=== PATIENT | male | born 1960 | race Caucasian/White ===

== ENCOUNTER 2016-12-08 00:21 | Inpatient (IN) | payer SELFPAY ==
[2016-12-08] VITALS (15 sets, daily range): BP systolic 98–165; BP diastolic 40–79; PULSE 65–95; RESP 15–21; TEMP 97.6–98.5; O2SAT 93–100
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
[2016-12-08] MEDS ORDERED: MIDAZOLAM HCL 5 MG/ML VIAL (1 ML) ONE (00:43)
[2016-12-08 00:46] LABS: AUTOMATED NEUTROPHIL # 3.8 TH/MM3 (1.8-7.7); BASOPHIL % 0.4 % (0.0-2.0); EOSINOPHIL # 0.1 TH/MM3 (0-0.4); EOSINOPHIL % 0.8 % (0.0-4.0); HEMATOCRIT 42.1 % (39.0-51.0); LYMPH % 54.7 % (9.0-44.0); LYMPHOCYTE # 5.8 TH/MM3 (1.0-4.8); MEAN CELL VOLUME 95.7 FL (80.0-100.0); MEAN CORPUSCULAR HEMOGLOBIN 33.2 PG (27.0-34.0); MEAN CORPUSCULAR HGB CONC 34.6 % (32.0-36.0); MONO % 8.2 % (0.0-8.0); NEUT % 35.9 % (16.0-70.0); PLATELET COUNT 115 TH/MM3 (150-450); RED CELL DISTRIBUTION WIDTH 12.7 % (11.6-17.2); WHITE BLOOD COUNT 10.6 TH/MM3 (4.0-11.0)
[2016-12-08 00:47] LABS: HEMO FLAGS AUTO DIFF
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
[2016-12-08] MEDS ORDERED: MISCELLANEOUS NURSING INFORMATION XX SCH (01:00)
[2016-12-08] MEDS ORDERED: ONDANSETRON HCL 4 MG/2 ML VIAL IV PRN (01:00)
[2016-12-08] MEDS ORDERED: FLUMAZENIL 0.5 MG/5 ML VIAL IV PUSH PRN (01:00)
[2016-12-08] MEDS ORDERED: CHLORHEXIDINE GLUCONATE 2 % 1 PACK (2 CLOTHS) TOP PRN (01:00)
[2016-12-08] MEDS ORDERED: LORazepam 2 MG TAB PO PRN (01:00)
[2016-12-08] MEDS ORDERED: LORazepam 1 MG TAB PO PRN (01:00)
[2016-12-08] MEDS ORDERED: HALOPERIDOL LACTATE 5 MG/ML AMP IM PRN (01:00)
[2016-12-08] MEDS ORDERED: LORazepam 2 MG/ML VIAL IV PUSH PRN ×4 (01:00)
[2016-12-08] MEDS ORDERED: MORPHINE SULFATE 4 MG/ML INJ IV PRN (01:00)
[2016-12-08] MEDS ORDERED: SODIUM CHLORIDE 0.9% FLUSH 10 ML FLUSH IV FLUSH PRN (01:00)
[2016-12-08] MEDS ORDERED: MAGNESIUM HYDROXIDE SUSP 30 ML CUP PO PRN (01:00)
[2016-12-08] MEDS ORDERED: ACETAMINOPHEN 325 MG TAB PO PRN (01:00)
[2016-12-08] MEDS ORDERED: ENALAPRILAT 1.25 MG/ML VIAL IV PRN (01:00)
[2016-12-08] MEDS: BACITRACIN TOP OINT 15 GM TUBE TOP SCH ×3 (01:00→19:31)
[2016-12-08 01:01] LABS: I-STAT POTASSIUM 3.6 MMOL/L (3.5-4.9); I-STAT SODIUM 133 MMOL/L (138-146)
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
[2016-12-08 01:10] LABS: APTT (PATIENT) 24.3 SEC (24.3-30.1); PROTHROMBIN TIME - PATIENT 11.2 SEC (9.8-11.6)
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
[2016-12-08 01:20] LABS: BANDS 1 % (0-6); NEUTROPHIL # MANUAL DIFF 3.7 TH/MM3 (1.8-7.7); POLYS (SEG NEUTROPHILS) 34 % (16-70); SCAN/DIFF FINAL DIFF MANUAL; WBC DIFF SAMPLE 100
[2016-12-08 01:21] LABS: PLATELET ESTIMATE SMEAR LOW (NORMAL); PLATELET MORPHOLOGY NORMAL (NORMAL)
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
[2016-12-08] MEDS: PROPOFOL 1000 MG/100 ML INJ 100 ML IV SCH ×2 (01:25→08:14)
[2016-12-08] MEDS: SODIUM CHLOR 0.9% 1000 ML INJ 1,000 ML IV SCH ×2 (01:26→05:04)
[2016-12-08 01:30] LABS: ANION GAP 13 MEQ/L (5-15); BICARBONATE 21.2 MEQ/L (21.0-32.0); BLOOD UREA NITROGEN 12 MG/DL (7-18); CHLORIDE 99 MEQ/L (98-107); GLOMERULAR FILTRATION RATE 70 ML/MIN (>89); POTASSIUM 3.5 MEQ/L (3.5-5.1); SODIUM (NA) 133 MEQ/L (136-145)
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
[2016-12-08 02:32] LABS: AMPHETAMINE, URINE NEG (NEG); BARBITURATES, URINE NEG (NEG); COCAINE, URINE NEG (NEG)
[2016-12-08 02:36] LABS: BLOOD GAS BASE EXCESS -5.6 mmol/L (-2-2); BLOOD GAS CARBOXYHEMOGLOBIN 4.4 % (0-4); BLOOD GAS HCO3 19 mmol/L (22-26); BLOOD GAS O2 HGB SATURATION 83 % (90-100); BLOOD GAS PCO2 38 mmHg (38-42); BLOOD GAS PO2 60 mmHg (61-120); BLOOD GAS TOTAL HGB 13.7 G/DL (12.0-16.0); TEMP CORR TO 98.6
[2016-12-08] MEDS ORDERED: IOHEXOL 350 MG/ML 10 ML VIAL (for RAD DIAG) IV ONE (02:38)
[2016-12-08] MEDS: PIPERACIL-TAZO 4.5 GM PREMIX 100 ML IV SCH ×4 (02:40→19:31)
[2016-12-08 02:41] LABS: CRITICAL VALUE YES; OXYGEN DEVICE VENT
[2016-12-08 02:42] LABS: DRAW SITE RT RADIAL; FIO2 50 %; NUMBER OF ARTERIAL PUNCTURES 1; STAT NO; ULNAR PULSE PRESENT; VENT SETTINGS SEE COMMENTS
[2016-12-08] MEDS ORDERED: MULTIVITAMIN INJ 10 ML, THIAMINE INJ 100 MG, FOLIC ACID INJ 1 MG in SODIUM CHLORID 0.9%... IV SCH (03:00)
[2016-12-08] MEDS ORDERED: CHLORHEXIDINE GLUCONATE 2 % 1 PACK (2 CLOTHS) TOP SCH (04:00)
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
[2016-12-08] MEDS ORDERED: PANTOPRAZOLE SODIUM 40 MG VIAL IVP SCH (06:00)
[2016-12-08 06:39] LABS: BLOOD GAS BASE EXCESS -6.6 mmol/L (-2-2); BLOOD GAS CARBOXYHEMOGLOBIN 1.8 % (0-4); BLOOD GAS HCO3 18 mmol/L (22-26); BLOOD GAS METHEMOGLOBIN 1.1 % (0-2); BLOOD GAS O2 HGB SATURATION 96 % (90-100); BLOOD GAS OXYGEN CONTENT 18.3 Vol % (12.0-20.0); BLOOD GAS PCO2 33 mmHg (38-42); BLOOD GAS PO2 213 mmHg (61-120); BLOOD GAS TOTAL HGB 13.1 G/DL (12.0-16.0); TEMP CORR TO 98.6
[2016-12-08 06:40] LABS: CRITICAL VALUE NO; DRAW SITE RT BRACHIAL; FIO2 60 %; NUMBER OF ARTERIAL PUNCTURES 1; OXYGEN DEVICE VENT; STAT NO; ULNAR PULSE PRESENT; VENT SETTINGS SEE COMMENTS
[2016-12-08] MEDS ORDERED: CHLORHEXIDINE 0.12% (ORAL KIT) 15 ML CUP MT SCH (08:00)
[2016-12-08] MEDS ORDERED: SODIUM CHLOR 0.9% 1000 ML INJ 1,000 ML IV ONE (09:45)
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
[2016-12-08] MEDS ORDERED: DOCUSATE SODIUM 100 MG CAP PO SCH (21:00)
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
== END 2016-12-08 22:09 | disposition home or self-care (01) | DRG 88 ==
LOC: NEPI 00:21 → EEVIPCON 00:58 → EDBD 00:58 → NEDA 00:58 → N03A 01:05
PROVIDERS: ADMIT Surgery; ATTEND Surgery
PROC: 0BH17EZ Insertion of Endotracheal Airway into Trachea, Via Natural or Artificial Opening (ICD-10-PCS; principal; 2016-12-08)
PROC: 5A1935Z Respiratory Ventilation, Less than 24 Consecutive Hours (ICD-10-PCS; 2016-12-08)
DX: S06.0X0A Concussion without loss of consciousness, initial encounter (principal); J69.0 Pneumonitis due to inhalation of food and vomit; J96.91 Respiratory failure, unspecified with hypoxia; Z86.74 Personal history of sudden cardiac arrest; I95.9 Hypotension, unspecified; E87.1 Hypo-osmolality and hyponatremia; F10.920 Alcohol use, unspecified with intoxication, uncomplicated; I71.4 Abdominal aortic aneurysm, without rupture; Y90.8 Blood alcohol level of 240 mg/100 ml or more; Y04.0XXA Assault by unarmed brawl or fight, initial encounter; R40.2431 Glasgow coma scale score 3-8, in the field [EMT or ambulance]
CPT/HCPCS: 36600; 70450; 70486; 71010; 71260; 72125; 72128; 72131; 72170; 74177; 80048; 80307; 82435; 82565; 82805; 82947; 84132; 84295; 84520; 85007; 85027; 85610; 85730; 86850; 86900; 86901; 87641; 94002; 94150; C9113; J2060; J2250; J2543; J3411; J7030; J7040; L0172; Q9967